=== PATIENT | female | born 1960 | race African-American/Black ===

== ENCOUNTER 2018-10-11 11:42 | Emergency (ER) | payer OTHER ==
[2018-10-11 11:57] VITALS: BP 103/47; PULSE 83; TEMP 97.6; BMI 42.5
--- NOTE | 2018-10-11 13:18 | PDOC ---
History of Present Illness - General Chief Complaint: Cold Symptoms Stated Complaint: COLD SYMPTOMS Time Seen by Provider: 10/11/18 12:45 History Source: Patient Exam Limitations: Clinical Condition - History of Present Illness Initial Comments: 10/11/18 13:16 Patient with no significant past medical history present with complaint of three -day history of yellow productive cough, runny nose, sore throat and yellow sputum production. Patient report tactile fevers. Patient denies any other symptoms Timing/Duration: other (3 days) Past History - Past Medical History Allergies/Adverse Reactions: Allergies Allergy/AdvReac Type Severity Reaction Status Date / Time Latex, Natural Rubber Allergy Intermediate Itching Verified 04/12/15 19:52 gentamicin [Gentamicin] Allergy Mild Difficulty Verified 04/12/15 19:52 Breathing Penicillins Allergy Mild Difficulty Verified 04/12/15 19:52 Breathing latex Allergy Verified 03/09/16 15:06 shellfish derived Allergy Verified 03/09/16 15:06 seafood Allergy Severe Difficulty Uncoded 04/12/15 19:52 Breathing blue glove Allergy Mild Itching Uncoded 04/12/15 19:52 tattoo blue ink Allergy Mild Hives Uncoded 04/12/15 19:52 cobolt blue dye Allergy Uncoded 03/09/16 15:06 Home Medications: Ambulatory Orders Cyclobenzaprine HCl [Flexeril -] 10 mg PO TID 01/16/15 Furosemide [Lasix -] 20 mg PO DAILY 01/16/15 Meclizine HCl [Antivert -] 25 mg PO TID 01/16/15 Aspirin [ASA -] 81 mg PO DAILY 01/17/15 Atorvastatin Ca [Lipitor] 40 mg PO HS 04/13/15 Potassium Chloride 10 meq PO DAILY 04/13/15 Spironolactone 25 mg PO DAILY 04/13/15 Lisinopril [Prinivil] 5 mg PO DAILY #30 tablet 04/14/15 Losartan Potassium 25 mg PO DAILY 03/09/16 Metoprolol Succinate [Toprol Xl] 150 mg PO DAILY 03/09/16 Apixaban [Eliquis -] 5 mg PO BID #60 tablet 03/11/16 Levofloxacin [Levaquin] 500 mg PO DAILY #5 tablet MDD 1 03/11/16 Azithromycin [Zithromax 250mg Tablets -] 250 mg PO UTDICT #6 tab 10/11/18 Benzonatate [Tessalon Pearls -] 100 mg PO TID #21 capsule 10/11/18 Ipratropium [place] 2 spray NS BID PRN #1 spray 10/11/18 Cardiac Disorders: Yes (afib) COPD: No Diabetes: Yes (NIDM) - Surgical History Cardiac Surgery: Yes (open heart sx, ring,pace/defib) - Immunization History Immunization Up to Date: Yes - Suicide/Smoking/Psychosocial Hx Smoking Status: Yes Smoking History: Current every day smoker Have you smoked in the past 12 months: No Number of Cigarettes Smoked Daily: 4 If you are a former smoker, when did you quit?: 01/16/15 Information on smoking cessation initiated: No 'Breaking Loose' booklet given: 01/17/15 Hx Alcohol Use: No Drug/Substance Use Hx: No Substance Use Type: None Hx Substance Use Treatment: No Review of Systems - Review of Systems Able to Perform ROS?: Yes Is the patient limited [place]ian proficient: No Constitutional: Yes: See HPI, Fever (tactile). No: Malaise, Weakness HEENTM: Yes: Symptoms Reported, See HPI, Nose Congestion, Throat Pain. No: Eye Pain, Blurred Vision, Tearing, Recent change in vision, Double Vision, Cataracts , Ear Pain, Ocular Prothesis, Ear Discharge, Nose Pain, Tinnitus, Nose Bleeding , Hearing Loss, Throat Swelling, Mouth Pain, Dental Problems, Difficulty Swallowing, Mouth Swelling, Other Respiratory: Yes: Symptoms reported, See HPI, Cough, Productive cough (yellow sputum). No: Orthopnea, Shortness of Breath, SOB with Exertion, SOB at Rest, Stridor, Wheezing, Hemoptysis, Other Cardiac (ROS): No: Symptoms Reported, See HPI, Chest Pain, Edema, Irregular Heart Rate, Lightheadedness, Palpitations, Syncope, Chest Tightness, Other ABD/GI: No: Nausea, Vomiting All Other Systems: Reviewed and Negative *Physical Exam - Vital Signs Last Vital Signs Temp Pulse Resp BP Pulse Ox 97.6 F 83 16 103/47 L 98 10/11/18 11:53 10/11/18 11:53 10/11/18 11:53 10/11/18 11:53 10/11/18 11:53 - Physical Exam Comments: 10/11/18 13:17 GENERAL: Well developed, well nourished. Awake and alert. No acute distress. HEENT: Normocephalic, atraumatic. PERRLA, EOMI. No conjunctival pallor. Sclera are non-icteric. Moist mucous membranes. Oropharynx is clear. NECK: Supple. Full ROM. CARDIOVASCULAR: Regular rate and rhythm. No murmurs, rubs, or gallops. Distal pulses are 2+ and symmetric. PULMONARY: No evidence of respiratory distress. Lungs clear to auscultation bilaterally. No wheezing, rales or rhonchi. ABDOMINAL: Soft. Non-tender. Non-distended. No rebound or guarding. No organomegaly. Normoactive bowel sounds. MUSCULOSKELETAL Normal range of motion at all joints. EXTREMITIES: No cyanosis. No clubbing. No edema. No calf tenderness. SKIN: Warm and dry. Normal capillary refill. No rashes. No jaundice. NEUROLOGICAL: Alert, awake, appropriate. Gait is normal without ataxia. PSYCHIATRIC: Cooperative. Good eye contact. Appropriate mood General Appearance: Yes: Nourished, Appropriately Dressed. No: Apparent Distress Moderate Sedation - Procedure Monitoring Vital Signs: Procedure Monitoring Vital Signs Temperature 97.6 F 10/11/18 11:53 Pulse Rate 83 10/11/18 11:53 Respiratory Rate 16 10/11/18 11:53 Blood Pressure 103/47 L 10/11/18 11:53 O2 Sat by Pulse Oximetry (%) 98 10/11/18 11:53 Medical Decision Making - Medical Decision Making 10/11/18 13:18 Patient with no significant past medical history present with complaint of three -day history of yellow productive cough, runny nose, sore throat and yellow sputum production. Patient report tactile fevers. Clinical exam unremarkable. Patient with no fever. Rapid strep and rapid flu tests ordered. Symptoms likely viral URI and will be discharged home on Tessalon Perles for cough and nasal spray with PCP follow-up if negative strep and flu tests. 10/11/18 14:07 Rapid strep and rapid flu test negative. Patient is stable for discharge with outpatient treatment for URI with PCP follow-up. *DC/Admit/Observation/Transfer Diagnosis at time of Disposition: Cough Acute bronchitis Qualifiers: Bronchitis organism: unspecified organism Qualified Code(s): J20.9 - Acute bronchitis, unspecified URI (upper respiratory infection) Qualifiers: URI type: unspecified URI Qualified Code(s): J06.9 - Acute upper respiratory infection, unspecified - Discharge Dispostion Disposition: HOME Condition at time of disposition: Stable Decision to Admit order: No - Prescriptions Prescriptions: Azithromycin [Zithromax 250mg Tablets -] 250 mg PO UTDICT #6 tab Benzonatate [Tessalon Pearls -] 100 mg PO TID #21 capsule Ipratropium [place] 2 spray NS BID PRN #1 spray PRN Reason: nasal congestion - Referrals Referrals: uMkesh Silver [Primary Care Provider] - - Patient Instructions Printed Discharge Instructions: DI for Acute Bronchitis Additional Instructions: Medication as prescribed. Increase fluid intake. Follow-up with senior information developer. - Post Discharge Activity
== END 2018-10-11 14:12 | disposition home or self-care (01) ==
LOC: JERFT 11:42
DX: J20.9 Acute bronchitis, unspecified (principal); J06.9 Acute upper respiratory infection, unspecified; R05 Cough
CPT/HCPCS: 87070; 87804; 87880; 99281-25